=== PATIENT | male | born 1980 | race Two or more races ===

== ENCOUNTER 2021-04-26 17:17 | Emergency (ER) | payer OTHER ==
[~2021-04-26] VITALS: Ht 175.3 cm; Wt 83.9 kg
[2021-04-26] MEDS ORDERED: FAMOTIDINE 20 MG/2 ML VIAL IV ONE (17:30)
[2021-04-26] MEDS ORDERED: KETOROLAC TROMETHAMINE 30 MG/ML VIAL IV ONE (17:30)
[2021-04-26] MEDS ORDERED: ONDANSETRON HCL INJ 2MG/ML 2ML 2 MG/ML VIAL IV ONE (17:30)
[2021-04-26] MEDS ORDERED: OMEPRAZOLE20 M2 PO (18:19)
[2021-04-26] MEDS ORDERED: ONDANSETRON ODT4 MG PO (18:19)
[2021-04-26] MEDS ORDERED: ULTRAM 50MG50 MG PO (18:19)
== END 2021-04-26 19:20 | disposition home or self-care (01) ==
LOC: FSED 17:30
DX: R10.30 Lower abdominal pain, unspecified (principal); K80.20 Calculus of gallbladder without cholecystitis without obstruction; K29.70 Gastritis, unspecified, without bleeding
CPT/HCPCS: 74177; 80053; 81003; 85025; 96374; 96375; 99284; J1885; J2405